=== PATIENT | male | born 1995 | race Hispanic/Latino ===

== ENCOUNTER 2025-01-26 09:27 | Emergency (ER) | payer OTHER, SELFPAY ==
[2025-01-26] VITALS (18 sets, daily range): BP systolic 103–145; BP diastolic 61–93; PULSE 66–102; RESP 14–25; TEMP 36.3; O2SAT 95–100
--- NOTE | ~2025-01-26 | XR_ITS ---
EXAMINATION: XR chest 2V 01/26/2025 10:33 INDICATION: Chest pain. Shortness of breath. TECHNIQUE:Frontal and lateral images of the chest were obtained. COMPARISON: None available FINDINGS: The lungs are clear. The cardiomediastinal silhouette is within normal limits. There are no pleural effusions. There is no pneumothorax suspected. IMPRESSION: 1: NO ACUTE CARDIOPULMONARY DISEASE. Reviewed, dictated and finalized at location Q.
--- NOTE | 2025-01-26 09:29 | ECG_ITS ---
Test Date: 2025-01-26 12:39:50 Measurements Intervals [place] Rate: 67 P: 30 IN: 162 QRS: 128 QRSD: 109 T: 44 QT: 382 QTc: 404 Interpretive Statements SINUS RHYTHM RIGHT AXIS DEVIATION INCOMPLETE RIGHT BUNDLE BRANCH BLOCK DELAYED PRECORDIAL R/S TRANSITION BASELINE ARTIFACT- I, II, AVR, AVL, AVF, V1 BORDERLINE ECG No previous ECG available for comparison Electronically Signed On 01-26-2025 12:43:00 CDT by James Massey D.O.
[2025-01-26 10:07] LABS: Hematocrit 48.3 % (42.0-52.0); Hemoglobin 16.6 g/dL (14.0-18.0); Immature Granulocyte Percent A 0.5 % (0-0.5); Lymphocytes Absolute Auto 3.00 K/mm3 (0.9-3.2); Mean Corpuscular HGB Conc 34.4 g/dl (32-36); Mean Corpuscular Hemoglobin 30.2 pg (26-34); Mean Corpuscular Volume 88.0 fl (80-100); Nucleated Red Blood Cells Absolute Auto 0.000 K/mm3 (0.0-0.012); Nucleated Red Blood Cells Perc 0.0 % (0.0-0.2); Platelet Count Result 192 k/mm3 (150-375); Red Blood Count 5.49 M/mm3 (4.6-6.20); White Blood Count 7.5 K/mm3 (4.5-10.0)
[2025-01-26 10:17] LABS: INR 1.0; Prothrombin Time 13.8 Seconds (11.1-14.7)
[2025-01-26 10:18] LABS: Alanine Aminotransferase 24 U/L (6-50); Albumin Level 4.6 g/dL (3.5-5.1); Alkaline Phosphatase 80 U/L (38-126); Anion Gap 11 mmol/L (4-12); Aspartate Amino Transferase 27 U/L (17-59); Bilirubin,Total 0.7 mg/dL (0.2-1.3); Blood Urea Nitrogen 14 mg/dL (9-20); Calcium 9.1 mg/dL (8.4-10.2); Carbon Dioxide 21 mmol/L (22-30); Chloride 106 mmol/L (98-107); Estimated CRCL calculation 176 ml/min; Estimated Glomerular Filt Rate > 60; Glucose 113 mg/dL (65-110); Lipase 68 U/L (23-300); Partial Thromboplastin Time 31.8 Seconds (22.3-36.8); Potassium 4.0 mmol/L (3.4-5.0); Sodium 138 mmol/L (137-145); Total Protein 7.9 g/dL (6.3-8.2)
[2025-01-26 10:29] LABS: Troponin I < 0.012 ng/mL (0.000-0.034)
--- NOTE | 2025-01-26 11:42 | ED_ITS ---
HPI - General Adult General Chief complaint: Chest Pain Stated complaint: cp, sob Time Seen by Provider: 01/26/25 10:48 History of Present Illness HPI narrative: Gary Toney is a 29-year-old male with reports of no significant past medical history however he states that he has required she use an albuterol inhaler without the official diagnosis of asthma. He states that he has been out of this his albuterol inhaler for a couple years and has not had any issues until the last few days. He states the past couple days he has been having some increased shortness of breath, the pain that felt like it was getting worse today. Related Data Allergies Allergy/AdvReac Type Severity Reaction Status Date / Time No Known Allergies Allergy Verified 01/26/25 10:06 Review of Systems 2 Review of Systems: All systems reviewed & are unremarkable except as noted in HPI and below Exam 2 Narrative: GENERAL: Well-appearing, well-nourished, and in no acute distress. HEAD: Normocephalic, atraumatic. EYES: PERRLA and EOMI. ENT: Nares clear, no rhinorrhea or epistaxis. Mucous membranes moist. Oropharynx without tonsillar hypertrophy exudate or other lesions. Bilateral TMs pearly love nonbulging NECK: Supple. No adenopathy or masses. No carotid bruits or JVD CHEST: Lung sounds noted to have inspiratory and expiratory wheezing throughout anterior and posterior alexis respirations are unlabored and even HEART: Regular rate and rhythm. No murmur heard. Normal peripheral pulses. EXTREMITIES: Normal range of motion. No edema. SKIN: Warm, dry, no rash. NEURO: No focal deficits. Alert and oriented x3. PSYCH: Normal mood and affect. Course Vital Signs Vital signs: Vital Signs Temperature 36.3 C L 01/26/25 10:03 Pulse Rate 83 01/26/25 10:03 Respiratory Rate 18 01/26/25 10:03 Blood Pressure 145/82 H 01/26/25 10:03 Pulse Oximetry 95 01/26/25 10:03 Oxygen Delivery Room Air 01/26/25 10:03 Temperature 36.3 C L 01/26/25 10:03 Pulse Rate 101 H 01/26/25 14:01 Respiratory Rate 17 01/26/25 14:01 Blood Pressure 131/93 H 01/26/25 14:01 Pulse Oximetry 97 01/26/25 14:01 Oxygen Delivery Room Air 01/26/25 13:07 Medical Decision Making MDM Narrative Medical decision making narrative: 29-year-old male who presents with complaints of having increased shortness of breath over the past 2-3 days he states he has needed he have an albuterol inhaler in the past but has been out of his inhaler for at least a couple years. Has had any recent issues up until the past 2-3 days started to have some more increased shortness of breath and a cough. Denies any known fevers or chills. On exam he is noted to have inspiratory and expiratory wheezes bilaterally throughout Concern for acute asthma exacerbation he was initially worked up for cardiac which is looking stable Will start hour long DuoNeb with IV steroids viral swab and re-evaluate CBC-no leukocytosis, hemodynamically stable, CMP-bicarb 21, creatinine 0.69, glucose 113 otherwise unremarkable Troponin-negative Lipase-68 Chest x-ray-no acute cardiopulmonary finding Patient re-evaluated after his now along and steroid and it moving air much better lung sounds are clear respirations even unlabored patient states he no longer having any chest tightness or pain he feels much better he is able to take a deeper breath without any difficulty. Explained to patient he likely has underlying asthma and is could be in the exacerbation along with bronchitis. Sent patient home with continued albuterol inhaler, prednisone for the next 5 days and azithromycin to cover for bronchitis. Also provided patient with a primary care doctor to follow up with the and strict return precautions. Medical Records Medical records reviewed: Yes I reviewed the external patient's medical records. Vital Signs Vital Signs: Vital Signs Temperature 36.3 C L 01/26/25 10:03 Pulse Rate 83 01/26/25 10:03 Respiratory Rate 18 01/26/25 10:03 Blood Pressure 145/82 H 01/26/25 10:03 Pulse Oximetry 95 01/26/25 10:03 Oxygen Delivery Room Air 01/26/25 10:03 Temperature 36.3 C L 01/26/25 10:03 Pulse Rate 101 H 01/26/25 14:01 Respiratory Rate 17 01/26/25 14:01 Blood Pressure 131/93 H 01/26/25 14:01 Pulse Oximetry 97 01/26/25 14:01 Oxygen Delivery Room Air 01/26/25 13:07 Vitals reviewed Lab Data Lab results reviewed: Yes I reviewed the patient's lab results. 01/26/25 09:59 01/26/25 09:59 Labs: Lab Results 01/26/25 01/26/25 Range/Units 09:59 12:37 WBC 7.5 (4.5-10.0) K/mm3 RBC 5.49 (4.6-6.20) M/mm3 Hgb 16.6 (14.0-18.0) g/dL Hct 48.3 (42.0-52.0) % MCV 88.0 (80-100) fl MCH 30.2 (26-34) pg MCHC 34.4 (32-36) g/dl RDW 12.7 (11.5-14.5) % Plt Count 192 (150-375) k/mm3 MPV 11.2 H (7.4-10.4) fl Immature Gran % (Auto) 0.5 (0-0.5) % Neut % (Auto) 48.5 (45.5-73.1) % Lymph % (Auto) 40.1 (18.3-44.2) % [place] % (Auto) 4.9 (2.6-8.5) % Eos % (Auto) 5.6 H (0-4.4) % Baso % (Auto) 0.4 (0.2-1.2) % Lymph # (Auto) 3.00 (0.9-3.2) K/mm3 [place] # (Auto) 0.4 (0.1-0.6) K/mm3 Eos # (Auto) 0.4 H (0-0.3) K/mm3 Baso # (Auto) 0.0 (0.0-0.1) K/mm3 Abs Immat Gran (auto) 0.04 H (0.00-0.031) K/mm3 Absolute Neuts (auto) 3.6 (1.3-6.7) K/mm3 Absolute Nucleated RBC 0.000 (0.0-0.012) K/mm3 Nucleated RBC % 0.0 (0.0-0.2) % PT 13.8 (11.1-14.7) Seconds INR 1.0 APTT 31.8 (22.3-36.8) Seconds Sodium 138 (137-145) mmol/L Potassium 4.0 (3.4-5.0) mmol/L Chloride 106 (98-107) mmol/L Carbon Dioxide 21 L (22-30) mmol/L Anion Gap 11 (4-12) mmol/L BUN 14 (9-20) mg/dL Creatinine 0.69 L (0.7-1.3) mg/dL Estim Creat Clear Calc 176 ml/min Estimated GFR > 60 (59 - ) Glucose 113 H (65-110) mg/dL Calcium 9.1 (8.4-10.2) mg/dL Total Bilirubin 0.7 (0.2-1.3) mg/dL AST 27 (17-59) U/L ALT 24 (6-50) U/L Alkaline Phosphatase 80 (38-126) U/L Troponin I < 0.012 < 0.012 (0.000-0.034) ng/mL Total Protein 7.9 (6.3-8.2) g/dL Albumin 4.6 (3.5-5.1) g/dL Lipase 68 (23-300) U/L Influenza A (RT-PCR) Negative (Negative) Influenza B (RT-PCR) Negative (Negative) RSV (RT-PCR) Negative (Negative) SARS-CoV-2 RNA (RT-PCR) Negative (Negative) Imaging Data Radiologist's impression: Impressions Chest X-Ray 01/26/25 10:46 IMPRESSION: 1: NO ACUTE CARDIOPULMONARY DISEASE. Discharge Plan Discharge Clinical Impression: Asthma attack Qualifiers: Asthma severity: mild Asthma persistence: unspecified Qualified Code(s): J 45.901 - Unspecified asthma with (acute) exacerbation Acute bronchitis Qualifiers: Bronchitis organism: unspecified organism Qualified Code(s): J20.9 - Acute bronchitis, unspecified Patient Disposition: Home Condition: Stable Instructions: Antibiotic Form, Asthma (ED) Additional Instructions: Continue to take the prednisone 40 mg once daily for the next 5 days continue to use your albuterol inhaler 2 puffs every 4-6 hours for the next 2 days then use as needed. Start taking the azithromycin as ordered for the next 5 days. Please call to follow-up with her primary care doctor as we discussed. If he should develop any new or worsening symptoms return to the emergency department Patient Language: Bulgarian Prescriptions: New albuterol sulfate [Ventolin HFA] 90 mcg/actuation HFA aerosol inhaler 2 puff inhalation QID PRN (Reason: shortness of breath or wheezing) Qty: 8.5 1RF azithromycin 250 mg tablet See Rx Instructions .ROUTE .COMPLEX Qty: 6 0RF Rx Instructions: For 250 mg dose pack: take 500 mg today (day 1), then 250 mg for 4 days (days 2-5) prednisone 20 mg tablet 40 mg PO DAILY 5 Days Qty: 10 0RF Follow-up/Referrals: liliana [Other] Jodi Peterson MD [Physician, Family Practice] - 1 Week PHYSICIAN,SECRETARY SPECIALIST [Primary Care Provider, Internal Medicine] Time of Disposition: 14:00
[2025-01-26] MEDS: IPRATROPIUM BR 0.02% INH SOLN 0.5 MG/2.5 ML VIAL 1 MG INHALATION (11:50)
[2025-01-26] MEDS: ALBUTEROL SULFATE NEB 2.5 MG/3 ML INH 10 MG INHALATION (11:51)
--- NOTE | 2025-01-26 12:29 | ECG_ITS ---
Test Date: 2025-01-26 09:50:11 Measurements Intervals [place] Rate: 80 P: 43 SD: 158 QRS: 140 QRSD: 99 T: 45 QT: 342 QTc: 395 Interpretive Statements SINUS RHYTHM RIGHT AXIS DEVIATION INCOMPLETE RIGHT BUNDLE BRANCH BLOCK BORDERLINE R WAVE PROGRESSION, ANTERIOR LEADS BASELINE ARTIFACT- I, II, III, AVL BORDERLINE ECG No previous ECG available for comparison Electronically Signed On 01-26-2025 14:07:49 CDT by James Massey D.O.
[2025-01-26] MEDS: dexAMETHasone SOD PHOS INJ 10 MG/ML 1 ML VIAL IV PUSH (12:36)
[2025-01-26 13:08] LABS: Troponin I < 0.012 ng/mL (0.000-0.034)
[2025-01-26 13:21] LABS: Influenza A QL RT-PCR Negative (Negative); Influenza B QL RT-PCR Negative (Negative); RSV RNA, RT-PCR Negative (Negative); SARS-CoV-2 RNA PCR Negative (Negative)
== END 2025-01-26 14:31 | disposition home or self-care (01) ==
PROVIDERS: Emergency Medicine; Emergency Provider Nurse Practitioner Family
DX: J20.9 Acute bronchitis, unspecified (principal); J45.901 Unspecified asthma with (acute) exacerbation; Z20.822 Contact with and (suspected) exposure to COVID-19; I45.10 Unspecified right bundle-branch block; R94.31 Abnormal electrocardiogram [ECG] [EKG]
CPT/HCPCS: 36415; 71046; 80053; 83690; 84484; 85025; 85610; 85730; 87637; 93005; 94640; 96374; 99284; J1100